=== PATIENT | female | born 1955 | race Caucasian/White ===

== ENCOUNTER 2017-07-07 14:41 | Emergency (ER) | payer OTHER ==
[~2017-07-07] VITALS: Ht 165.1 cm; Wt 72.7 kg
[2017-07-07] MEDS ORDERED: LOSA50TA20 (14:51)
[2017-07-07] MEDS ORDERED: OXYC1TAB23 PO (15:20)
[2017-07-07] MEDS ORDERED: VALA1TAB2 PO (15:22)
[2017-07-07 15:43] VITALS: BP 175/84
== END 2017-07-07 15:49 | disposition home or self-care (01) ==
LOC: M ED 14:41
DX: B02.9 Zoster without complications (principal); I10 Essential (primary) hypertension; Z79.899 Other long term (current) drug therapy

== ENCOUNTER → 2017-10-10 | Outpatient (CLI) | payer OTHER ==
[~2017-10-10] MED LIST: LOSA50TA20; OXYC1TAB23 PO; VALA1TAB2 PO
--- NOTE | 2017-10-10 13:30 | REPMRS ---
Patient History The patient states she has not had a clinical breast exam in over a year. Patient is postmenopausal and had first child at age 37. Family history of colorectal cancer in father at age 50 or over and colorectal cancer in brother at age 50 or over. Reductions of both breasts. Digital Woman Screen Mammo: October 10, 2017 - Exam #: [id number] Bilateral CC and MLO view(s) were taken. Technologist: Viktoria Navarro, Technologist FINDINGS: There are scattered fibroglandular densities. There is no evidence of cancer on this mammogram. ASSESSMENT: BI-RADS/ACR category 2 mammogram. Benign finding(s). Recommendation Routine screening mammogram of both breasts in 1 year (for women over age 40). This mammogram was interpreted with the aid of an FDA-approved computer-aided dectection system. Electronically Signed By: Jersey Eaton MD 10/10/17 [id number]
== END ==
LOC: M WHC 12:55
PROVIDERS: ATTEND Family Medicine
DX: Z12.31 Encounter for screening mammogram for malignant neoplasm of breast (principal)

== ENCOUNTER 2018-12-30 11:52 | Emergency (ER) | payer OTHER ==
[~2018-12-30] VITALS: Ht 165.1 cm; Wt 72.7 kg
[~2018-12-30 11:52] MED LIST changes: -LOSA50TA20; +LOSA50TA88
[2018-12-30] MEDS ORDERED: ASPIRIN 81 MG CHEW TABLET PO ONE (12:45)
[2018-12-30 13:03] LABS: BASO # 0.1 10^3/uL (0.0-0.2); BASO % 0.9 % (0.0-1.0); EOS # 0.3 10^3/uL (0.0-0.50); EOS % 4.1 % (0.0-3.0); HEMATOCRIT 39.1 % (36.0-47.0); HEMOGLOBIN 13.6 g/dl (12.0-15.5); LYMPH # 3.2 10^3/uL (1.5-4.5); MEAN CORPUSCULAR HEMOGLOBIN 31.8 pg (27.0-33.0); MEAN CORPUSCULAR HGB CONC 34.8 g/dl (32.0-36.5); MEAN CORPUSCULAR VOLUME 91.4 fl (80.0-96.0); MONO # 0.8 10^3/uL (0.0-0.8); MONO % 9.1 % (0.0-5.0); NEUTROPHILS # 3.8 10^3/uL (1.8-7.7); NEUTROPHILS % 46.7 % (36.0-66.0); PLATELET COUNT, AUTOMATED 208 10^3/uL (150-450); RED BLOOD COUNT 4.28 10^6/uL (4.00-5.40); WHITE BLOOD COUNT 8.2 10^3/uL (4.0-10.0)
[2018-12-30 13:14] LABS: INR 1.16
[2018-12-30 13:15] LABS: PARTIAL THROMBOPLASTIN TIME 25.8 SECONDS (25.4-37.6)
[2018-12-30 13:39] LABS: ALT/SGPT 24 U/L (12-78); BLOOD UREA NITROGEN 18 MG/DL (7-18); CALCIUM LEVEL 8.7 MG/DL (8.8-10.2); CARBON DIOXIDE LEVEL 26 MEQ/L (21-32); CHLORIDE LEVEL 108 MEQ/L (98-107); CPK CREATINE PHOSPHOKINASE 108 U/L (26-192); CREATININE FOR GFR 0.92 MG/DL (0.55-1.30); GLOMERULAR FILTRATION RATE > 60.0 (>45); GLUCOSE, FASTING 94 MG/DL (70-100); POTASSIUM SERUM 4.1 MEQ/L (3.5-5.1); SODIUM LEVEL 142 MEQ/L (136-145)
[2018-12-30 13:40] LABS: ALBUMIN 3.6 GM/DL (3.2-5.2); BILIRUBIN,DIRECT 0.2 MG/DL (0.0-0.2); BILIRUBIN,TOTAL 0.5 MG/DL (0.2-1.0); FREE T4 0.83 NG/DL (0.76-1.46); LIPASE 101 U/L (73-393); MB/CK RELATIVE INDEX 1.85 (< OR =4); TROPONIN I < 0.02 NG/ML (< 0.10)
--- NOTE | 2018-12-30 13:42 | REP ---
CHEST, TWO VIEWS: No comparison. There is no evidence of acute infiltrate. No pleural effusion is seen. The heart is normal in size. The mediastinal silhouette is unremarkable. The visualized osseous structures are intact. IMPRESSION: No acute pulmonary disease. Electronically Signed by Jersey Eaton MD 12/31/2018 09:10 A
[2018-12-30] MEDS ORDERED: ISOVUE-370 76% 100ML VIAL (Q9967) As Ordered ONE (13:57)
--- NOTE | 2018-12-30 15:08 | REP ---
CT ANGIOGRAM OF THE CHEST: TECHNIQUE: Axial contrast enhanced images from the thoracic inlet to the upper abdomen using 100 mL Isovue 370 intravenous contrast material with multiplanar reformations. There is no CT evidence of pulmonary embolism. There is no thoracic aortic aneurysm or dissection. Heart is not significantly enlarged. There is no mediastinal, hilar, or chest wall lymphadenopathy. There is no pleural or pericardial effusion. In the right upper lobe there is a nodule which measures 5 mm in diameter. No other parenchymal nodular opacities are seen. Mild fibroatelectatic changes seen in the lingula. There is a small hiatal hernia. There is a cyst in the liver at the dome measuring 3.5 cm in diameter. IMPRESSION: No CT evidence of pulmonary embolism. There is a 5 mm nodule in the right upper lobe. If the patient is at high risk for cancer, then I recommend CT followup in 1 year. Small hiatal hernia. Cyst in the liver. Electronically Signed by Jersey Eaton MD 12/31/2018 10:00 A
[2018-12-30 18:39] LABS: CPK CREATINE PHOSPHOKINASE 98 U/L (26-192); MB/CK RELATIVE INDEX 1.53 (< OR =4); TROPONIN I < 0.02 NG/ML (< 0.10)
[2018-12-30 19:30] VITALS: BP 164/86
--- NOTE | 2018-12-31 08:50 | ECGEPIP ---
Stationary ECG Study [facility] - ED Test Date: 2018-12-30 Pat Name: IRMA SIMON Department: Room: - Gender: F Sidehand: JOVON : 1955 Requested By: BULMARO Shukla Order Number: [id number] Reading MD: Capo Alexandre Measurements Intervals [place] Rate: 60 P: 25 MD: 151 QRS: 11 QRSD: 93 T: 49 QT: 425 QTc: 428 Interpretive Statements SINUS RHYTHM Inferior Q waves of uncertain significance Comparison tracing not on file Electronically Signed On 12-31-2018 8:50:21 EST by Capo Alexandre
--- NOTE | 2018-12-31 09:14 | ECGEPIP ---
Stationary ECG Study [facility] - ED Test Date: 2018-12-30 Pat Name: IRMA SIMON Department: Room: - Gender: F Broadband Installer: michelle : 1955 Requested By: BULMARO Shukla Order Number: [id number] Reading MD: Capo Alexandre Measurements Intervals [place] Rate: 64 P: 25 PA: 158 QRS: 14 QRSD: 92 T: 61 QT: 427 QTc: 442 Interpretive Statements SINUS RHYTHM Similar to tracing done 12-30-18 Electronically Signed On 12-31-2018 9:14:25 EST by Capo Alexandre
--- NOTE | 2018-12-31 13:59 | ED PDOC ---
Post-Departure Follow-Up ft vivi khanna faxed formal report of cta for fu Massiel Sargent MD Dec 31, 2018 13:59
== END 2018-12-30 19:30 | disposition home or self-care (01) ==
LOC: M ED 11:52 → EDBD 11:52 → M ED 19:30
DX: R91.1 Solitary pulmonary nodule (principal); R07.9 Chest pain, unspecified; K44.9 Diaphragmatic hernia without obstruction or gangrene; K76.89 Other specified diseases of liver; I10 Essential (primary) hypertension; K21.9 Gastro-esophageal reflux disease without esophagitis; Z82.49 Family history of ischemic heart disease and other diseases of the circulatory system
CPT/HCPCS: 36415; 71046; 71275; 80048; 80076; 82550; 82553; 83690; 84439; 84443; 84484; 85025; 85610; 85730; 93005; 93041; 94760; 99285; Q9967

== ENCOUNTER → 2019-01-14 | Outpatient (CLI) | payer OTHER ==
--- NOTE | 2019-01-14 13:50 | REPMRS ---
Patient History The patient states she has not had a clinical breast exam in over a year. Patient is postmenopausal and had first child at age 37. Family history of colorectal cancer at age 50 or over in father, colorectal cancer at age 50 in brother. Reductions of both breasts. Took hormonal contraceptives for 1 month. Digital Woman Screen Mammo: January 14, 2019 - Exam #: [id number] Bilateral CC and MLO view(s) were taken. Technologist: Juana Parker Technologist Prior study comparison: October 10, 2017, digital woman screen mammo performed at [facility]. FINDINGS: There are scattered fibroglandular densities. There has been no change in the appearance of the mammogram from the prior studies. There is a mild amount of scattered fibroglandular density which is fairly symmetric. There is no interval development of dominant mass, architectural distortion, or clustered microcalcification suggestive of malignancy. Assessment: BI-RADS/ACR category 1 mammogram. Negative Mammogram. Recommendation Routine screening mammogram of both breasts in 1 year (for women over age 40). This patient's Lifetime Breast Cancer RIsk is estimated at 10.1 %. This mammogram was interpreted with the aid of an FDA-approved computer-aided dectection system. Electronically Signed By: Niels Hurley MD 01/14/19 [id number]
== END ==
LOC: M WHC 10:42
PROVIDERS: ATTEND Family Medicine
DX: Z12.31 Encounter for screening mammogram for malignant neoplasm of breast (principal); Z78.0 Asymptomatic menopausal state; Z80.0 Family history of malignant neoplasm of digestive organs; Z98.890 Other specified postprocedural states; Z92.0 Personal history of contraception

== ENCOUNTER → 2019-07-09 | Outpatient (CLI) | payer OTHER ==
--- NOTE | 2019-07-09 15:21 | REP ---
CT of the chest without contrast Indication: Lung nodule. Comparison: CTA chest of 12/30/2018. Technique: Axial CT of the chest was performed. No intravenous contrast was administered. Coronal and sagittal soft tissue reformatted images, axial lung reformatted images and coronal MIP images were provided. Findings: The upper airway is patent. There is a 5 mm solid nodule within the right upper lung on image 38. There may be faint calcification along the periphery of the nodule. A 2 mm nodule ground-glass nodule within the right lower lobe is unchanged (image 53). There is no new nodule. There is no consolidation. There is linear atelectasis or scarring within the lingula, similar to prior. There is no pleural effusion. There is no pericardial effusion. Within the imaged portion of the upper abdomen. A hepatic cysts is again seen. There is a sliding hiatal hernia. There are degenerative changes of the thoracolumbar spine. The there is partially imaged. There is no axillary mediastinal lymphadenopathy. Impression: 5 mm right upper lobe nodule. If there are risk factors for cancer, recommend 1-year follow-up. Electronically Signed by Colleen Valdez MD 07/09/2019 03:12 P
== END ==
LOC: M RAD 15:30
PROVIDERS: ATTEND Internal Medicine Pulmonary Disease
DX: R91.1 Solitary pulmonary nodule (principal); R91.8 Other nonspecific abnormal finding of lung field; K44.9 Diaphragmatic hernia without obstruction or gangrene; M51.35 Other intervertebral disc degeneration, thoracolumbar region

== ENCOUNTER → 2020-03-28 | Outpatient (CLI) | payer OTHER ==
[~2020-03-28] MED LIST changes: -VALA1TAB2 PO; +VALA1TAB5 PO
--- NOTE | 2020-03-28 12:40 | REPMRS ---
Patient History The patient states she had a clinical breast exam in December 2019. Family history of colorectal cancer at age 50 or over in father, colorectal cancer at age 50 in brother. Reductions of both breasts. Took hormonal contraceptives for 1 month. 3D TOMOSYNTHESIS WAS PERFORMED. The Xiomara Horvath lifetime risk for breast cancer is 9.7%. VOLPARA DENSITY B. Digital Woman Screen Mammo: March 28, 2020 - Exam #: [id number] Bilateral CC and MLO view(s) were taken. Technologist: Suzanne Mckeon, Technologist Prior study comparison: January 14, 2019, bilateral digital woman screen mammo performed at [facility]. October 10, 2017, digital woman screen mammo performed at [facility]. FINDINGS: There are scattered fibroglandular densities. There has been no change in the appearance of the mammogram from the prior studies. There is a mild amount of residual fibroglandular tissue which is fairly symmetric. There is no interval development of dominant mass, architectural distortion, or clustered microcalcification suggestive of malignancy. Assessment: BI-RADS/ACR category 1 mammogram. Negative Mammogram. Recommendation Routine screening mammogram in 1 year (for women over age 40). This mammogram was interpreted with the aid of an FDA-approved computer-aided dectection system. Electronically Signed By: Jersey Eaton MD 03/28/20 [id number]
== END ==
LOC: M WHC 10:01
PROVIDERS: ATTEND Family Medicine
DX: Z12.31 Encounter for screening mammogram for malignant neoplasm of breast (principal)

== ENCOUNTER → 2020-08-18 | Outpatient (CLI) | payer MEDICARE, OTHER ==
--- NOTE | 2020-08-18 14:39 | REP ---
INDICATION: SOLITARY PULMONARY NODULEPLEASE COMPARE TO PREV CT'S COMPARISON: 07/09/2019 TECHNIQUE: Axial noncontrast images from the thoracic inlet to the upper abdomen with coronal and sagittal reformations. This CT examination was performed using the following dose reduction techniques: Automated exposure control, adjustment of mA and/or kv according to the patient's size, and use of iterative reconstruction technique. FINDINGS: A solitary noncalcified nodule is again identified in the right upper lobe measuring roughly 5-6 mm diameter which appears relatively similar to prior examination although very subtle increase in size cannot definitively be excluded. No further significant nodule or mass lesion. No consolidation. No effusion. Tracheobronchial tree is patent. No obvious adenopathy. Mediastinum demonstrates normal thoracic aorta, pulmonary vasculature, and heart/pericardium. No cardiomegaly or pericardial effusion. Limited upper abdomen demonstrates normal bilateral adrenal glands along with stable cystic lesion at the dome of the liver. IMPRESSION: 1. 5-6 mm noncalcified pulmonary nodule in the right upper lobe similar to prior examination. No new pulmonary nodule consolidation or effusion noted. No associated adenopathy appreciated. Consider 9-12 month follow-up examination. <Electronically signed by Migel Higgins > 08/18/20 [id number]
== END ==
LOC: M RAD 13:35
PROVIDERS: ATTEND Internal Medicine Pulmonary Disease
DX: R91.1 Solitary pulmonary nodule (principal)

== ENCOUNTER → 2021-04-17 | Outpatient (CLI) | payer MEDICARE, OTHER ==
--- NOTE | 2021-04-17 09:44 | REPMRS ---
Patient History The patient states she had a clinical breast exam in December 2020. Family history of colorectal cancer at age 50 or over in father, colorectal cancer at age 50 in brother. Reductions of both breasts. Took hormonal contraceptives for 1 month. Moderna vaccine 12/30/20 left arm, 01/31/21 right arm. 20 lb intentional weight loss. Patient states no breast complaints today. Patient has signed MRS History Sheet. Digital Woman Screen Mammo: April 17, 2021 - Exam #: [id number] Bilateral CC and MLO view(s) were taken. Technologist: RT Partha Prior study comparison: March 28, 2020, bilateral digital woman screen mammo performed at [facility]. January 14, 2019, bilateral digital woman screen mammo performed at [facility]. October 10, 2017, digital woman screen mammo performed at [facility]. FINDINGS: There are scattered fibroglandular densities. The Volpara volumetric breast density category is:B. There has been no change in the appearance of the mammogram from the prior studies. There is a mild amount of scattered fibroglandular density which is fairly symmetric. There is no interval development of dominant mass, architectural distortion, or grouped microcalcification suggestive of malignancy. 3-D tomosynthesis shows no additional findings. Assessment: BI-RADS/ACR category 1 mammogram. Negative Mammogram. Recommendation Routine screening mammogram of both breasts in 1 year (for women over age 40). This patient's [facility] Lifetime Breast Cancer Risk is estimated at 9.2 %. This mammogram was interpreted with the aid of an FDA-approved computer-aided dectection system. Electronically Signed By: Niels Hurley MD 04/17/21 0944
== END ==
LOC: M WHC 08:01
PROVIDERS: ATTEND Family Medicine
DX: Z12.31 Encounter for screening mammogram for malignant neoplasm of breast (principal); Z80.0 Family history of malignant neoplasm of digestive organs

== ENCOUNTER → 2021-08-24 | Outpatient (CLI) | payer MEDICARE, OTHER ==
--- NOTE | 2021-08-24 17:16 | REP ---
INDICATION: SOLITARY PULMONARY NODULE COMPARISON: Multiple the latest 08/18/2020 TECHNIQUE: Standard helical technique without intravenous contrast FINDINGS: The mediastinum and pulmonary yann are unchanged. There is no evidence of a mass or adenopathy. There is no significant change in appearance of the imaged upper abdomen or imaged osseous structures. There is a simple hepatic cyst status quo. Evaluation of the lung mike shows no significant change in appearance of the 5 mm size nodule in the right upper lobe. There is a 4 mm size nodule in the right middle lobe which is unchanged. There is an additional 3 mm sized pleural base nodule in the right middle lobe which is unchanged. There is a 3 mm size nodule in the left lower lobe which is unchanged. There is an unchanged curvilinear density in the inferior lingula. No new abnormal nodules, masses, or opacities have developed. IMPRESSION: Stable CT findings as described above. There are no new parenchymal nodules or abnormalities. Lung rads category 2 exam. As per the revised Fleischner society criteria follow-up in 1 year is recommended. Other findings as described above. <Electronically signed by Woodrow Leigh > 08/24/21 [id number]
== END ==
LOC: M PLAIMG 11:26
PROVIDERS: ATTEND Internal Medicine Pulmonary Disease
DX: R91.8 Other nonspecific abnormal finding of lung field (principal)

== ENCOUNTER → 2022-04-26 | Outpatient (CLI) | payer MEDICARE, OTHER ==
[~2022-04-26] MED LIST changes: +LOSA50TA28; -LOSA50TA88
== END ==
LOC: M WHC 14:51
PROVIDERS: ATTEND Family Medicine
DX: Z12.31 Encounter for screening mammogram for malignant neoplasm of breast (principal)

== ENCOUNTER → 2023-05-03 | Outpatient (CLI) | payer MEDICARE, OTHER | LOC: M WHC 09:38 | PROVIDERS: ATTEND Family Medicine | DX: Z12.31 Encounter for screening mammogram for malignant neoplasm of breast (principal) ==

== ENCOUNTER → 2023-05-14 | Outpatient (CLI) | payer MEDICARE, OTHER | LOC: M WHC 10:41 | PROVIDERS: ATTEND Family Medicine | DX: Z13.820 Encounter for screening for osteoporosis (principal); M85.89 Other specified disorders of bone density and structure, multiple sites ==

== ENCOUNTER → 2024-05-11 | Outpatient (CLI) | payer MEDICARE, OTHER | LOC: M WHC 09:34 | PROVIDERS: ATTEND Nurse Practitioner Primary Care | DX: Z12.31 Encounter for screening mammogram for malignant neoplasm of breast (principal); L03.113 Cellulitis of right upper limb; R92.313 Mammographic fatty tissue density, bilateral breasts ==

== ENCOUNTER → 2024-05-11 | Outpatient (REF) | payer MEDICARE, OTHER | LOC: M LAB REF 16:21 | PROVIDERS: ATTEND Student in an Organized Health Care Education/Training Program | DX: L03.113 Cellulitis of right upper limb (principal) ==

== ENCOUNTER 2025-05-21 06:51 | Day surgery (SDC) | payer MEDICARE, OTHER ==
[~2025-05-21] VITALS: Ht 165.1 cm; Wt 69.3 kg
[~2025-05-21 06:51] MED LIST changes: +AMLO1TAB24 PO; +LOSA50TA28 PO
[2025-05-21] MEDS ORDERED: LIDOCAINE 2% INJ 100 MG/5 ML SYRINGE As Ordered ONE (08:09)
[2025-05-21 08:47] VITALS: BP 124/67; TEMP 97.2; O2SAT 99
== END 2025-05-21 08:47 | disposition home or self-care (01) ==
LOC: M OPP 06:51
PROVIDERS: ATTEND Surgery
DX: Z12.11 Encounter for screening for malignant neoplasm of colon (principal); I10 Essential (primary) hypertension; M19.90 Unspecified osteoarthritis, unspecified site; Z79.899 Other long term (current) drug therapy

== ENCOUNTER → 2025-06-04 | Outpatient (CLI) | payer MEDICARE, OTHER | LOC: M WHC 11:04 | PROVIDERS: ATTEND Internal Medicine | DX: Z12.31 Encounter for screening mammogram for malignant neoplasm of breast (principal) ==